=== PATIENT | female | born 1975 | race Two or more races ===

== ENCOUNTER 2018-11-22 09:51 | Emergency (ER) | payer OTHER ==
[~2018-11-22] VITALS: Ht 157.5 cm; Wt 79.8 kg
[~2018-11-22 09:51] MED LIST: KETO10TA2 PO; PANADOL EXTRA500 MG; TRAM1TAB98 PO
[2018-11-22] MEDS ORDERED: ULTRACET PO (10:27)
== END 2018-11-22 10:47 | disposition home or self-care (01) ==
LOC: ER 09:51
DX: H60.8X2 Other otitis externa, left ear (principal)

== ENCOUNTER 2021-02-04 11:38 | Day surgery (SDC) | payer OTHER ==
[~2021-02-04] VITALS: Ht 160 cm; Wt 84.8 kg
[~2021-02-04 11:38] MED LIST changes: +ULTRACET PO
[2021-02-04] MEDS ORDERED: HYDROXYCHLOROQ200 MG (12:27)
== END 2021-02-05 | disposition home or self-care (01) ==
LOC: ER 11:38 → CIR.AMB 02-05 13:18
PROVIDERS: ATTEND Obstetrics & Gynecology
DX: N84.0 Polyp of corpus uteri (principal); Z20.822 Contact with and (suspected) exposure to COVID-19

== ENCOUNTER 2021-02-23 01:26 | Inpatient (IN) | payer OTHER ==
[~2021-02-23] VITALS: Ht 160 cm; Wt 84.8 kg
[~2021-02-23 01:26] MED LIST changes: +HYDROXYCHLOROQ200 MG
--- NOTE | 2021-02-23 01:59 | NUR ---
SE RECIBE PTE ALERTA Y ORIENTADA POR JENNIFER. PTE REFIERE PRESENTAR JOSHUA DOLOR EN AREA EPIGASTRICA, VOMITOS X7 Y DIARREAS X10. PTE PRESENTA TEMPERATURA DE 100.5.
--- NOTE | 2021-02-23 03:38 | NUR ---
MISS. VALLES ORIENTA A PACIENTE SOBRE TRATAMIENTO. SG MUESTRAS DE LABORATORIO ORDENADAS. CANALIZA CON AREA DE VENOPUNCION SOBEIDA DE EDEMA O ENROJECINMIENTO. ADMINISTRA MEDICAMENTOS ORDENADOS. SE MANTIENE EN OBSERVACION POR CAMBIOS.
--- NOTE | 2021-02-23 04:21 | NUR ---
ABG NOTIFICADOS A BRADY Y VÍCTOR X A PERSONAL DE TURNO.
--- NOTE | 2021-02-23 07:42 | NUR ---
PACIENTE FEMENINA ALERTA Y ORIENTADA. ACOSTADA EN DANNY EN SECCION K. CONECTADA A MONITOR CARDIACO Y SATUROMETRO. PACIENTE CON NONREBREATHER, SAT:99%. SE MIDE S/V. SE LE ORIENTA SOBRE CONTINUIDAD DE TRATAMIENTO, REFIERE ENTENDER. SE LE ADMINISTRA MEDICAMENTOS DOTTIE ORDEN MEDICA, NO PRESENTA REACCION ADVERSA AL MOMENTO. SE MANTIENE BAJO OBSERVACION POR CAMBIOS. PENDIENTE CONSULTA.
== END 2021-02-28 05:15 | disposition expired | DRG 177 ==
LOC: ER 01:26 → MEDJ 11:45 → SEC-K 11:45 → MEDJ 15:23
PROVIDERS: ADMIT Internal Medicine; ATTEND Internal Medicine
PROC: 3E0F7SF Introduction of Other Gas into Respiratory Tract, Via Natural or Artificial Opening (ICD-10-PCS; principal; 2021-02-23)
PROC: 8E0ZXY6 Isolation (ICD-10-PCS; 2021-02-23)
PROC: XW033E5 Introduction of Remdesivir Anti-infective into Peripheral Vein, Percutaneous Approach, New Technology Group 5 (ICD-10-PCS; 2021-02-23)
PROC: 4A033R1 Measurement of Arterial Saturation, Peripheral, Percutaneous Approach (ICD-10-PCS; 2021-02-23)
PROC: 0BH17EZ Insertion of Endotracheal Airway into Trachea, Via Natural or Artificial Opening (ICD-10-PCS; 2021-02-28)
DX: U07.1 COVID-19 (principal); J12.82 Pneumonia due to coronavirus disease 2019; M32.9 Systemic lupus erythematosus, unspecified; R09.02 Hypoxemia; Z20.822 Contact with and (suspected) exposure to COVID-19; E86.0 Dehydration; E87.6 Hypokalemia; I46.8 Cardiac arrest due to other underlying condition; Z72.0 Tobacco use